=== PATIENT | male | born 1990 | race African-American/Black ===

== ENCOUNTER 2024-08-06 01:16 | Emergency (ER) | payer SELFPAY ==
[~2024-08-06] VITALS: Ht 167.6 cm; Wt 78.0 kg
[2024-08-06 01:58] VITALS: O2SAT 98
[2024-08-06 04:26] LABS: BASOPHILS % 0.5 % (0.0-2.0); EOSINOPHILS % 3.4 % (0.0-5.0); HEMATOCRIT. 43.8 % (42.0-52.0); HEMOGLOBIN. 14.1 g/dL (14.0-18.0); LYMPHOCYTES % 35.8 % (20.0-50.0); MEAN CORPUSCULAR HEMOGLOBIN 28.3 pg (28.0-32.0); MEAN CORPUSCULAR HGB CONC 32.1 g/dL (31.0-37.0); MEAN CORPUSCULAR VOLUME 88.2 fL (80.0-94.0); MEAN PLATELET VOLUME 9.4 fl (7.4-10.4); MONOCYTES % 7.9 % (2.0-8.0); NEUTROPHILS % 52.4 % (40.0-76.0); PLATELET 214 x1000/uL (130-400); RED BLOOD CELL COUNT 4.97 mill/uL (4.7-6.1); RED CELL DISTRIBUTION WIDTH 12.3 % (11.6-14.6); WHITE BLOOD COUNT 6.7 x1000/uL (4.5-11.0)
[2024-08-06 04:34] LABS: CHLORIDE 107 mEq/L (98-107); POTASSIUM 3.7 mEq/L (3.5-5.1); SODIUM 143 mEq/L (136-145)
[2024-08-06 04:35] LABS: CARBON DIOXIDE 31 mEq/L (21-32)
[2024-08-06 04:36] LABS: CALCIUM 9.6 mg/dL (8.7-10.4)
[2024-08-06 04:40] LABS: CREATININE 1.1 mg/dL (0.6-1.3); GLUCOSE 105 mg/dL (70-105); UREA NITROGEN BLOOD 14 mg/dL (9-23)
[2024-08-06] MEDS: KETOROLAC 30MG/ML VIAL IM ONE (04:50)
[2024-08-06] MEDS: DEXAMETHASONE 4MG/ML 1ML VIAL IM ONE (04:50)
[2024-08-06] MEDS ORDERED: IBUP-2029 MT (05:44)
[2024-08-06] MEDS ORDERED: AMOX1TAB16 MT (05:44)
[2024-08-06 06:05] VITALS: BP 118/75; PULSE 69; RESP 18; TEMP 36.8; O2SAT 100
[2024-08-06] MEDS ORDERED: IOHEXOL-300 100 ML BOTTLE ONE (06:06)
== END 2024-08-06 06:07 | disposition home or self-care (01) ==
LOC: ER 01:35
DX: J02.9 Acute pharyngitis, unspecified (principal); R10.9 Unspecified abdominal pain; M54.2 Cervicalgia; Z79.899 Other long term (current) drug therapy
CPT/HCPCS: 99285; 70491; 80048; 87430; 85025; 87070; 36415; 96372; J1885; Q9967; J1100